=== PATIENT | male | born 1995 | race Caucasian/White ===

== ENCOUNTER 2017-02-19 14:15 | Emergency (ER) | payer OTHER ==
[~2017-02-19] VITALS: Ht 170.2 cm; Wt 78.0 kg
[2017-02-19 14:19] VITALS: Ht 170.2 cm; Wt 78.0 kg
[2017-02-19] MEDS ORDERED: TETRACAINE 0.5% 4 ML OPH BOTH EYES ONE (16:00)
[2017-02-19] MEDS ORDERED: TIMOLOL 0.5% 5 ML OPH LEFT EYE ONE ×2 (16:00→18:00)
[2017-02-19] MEDS ORDERED: IOHEXOL 100 ML ONE (16:07)
[2017-02-19] MEDS ORDERED: SOD CHLORIDE 0.9% 100 ML ONE (16:07)
--- NOTE | 2017-02-19 16:28 | ERA ---
ER Documentation Chief Complaint Date/Time DATE: 02/19/17 TIME: 16:10 Chief Complaint LEFT EYE PAIN AND REDNESS WITH CLEAR DRAINAGE X 1 DAY HPI 21-year-old previously healthy male presenting with left eye pain and redness. He states he woke up this morning and felt some discomfort and pressure in his left eye. He went to look in the mirror and saw that his eye was red. He washed out his eye. As the day progressed he noticed that his pupil was getting larger and his symptoms were getting worse. He denies any associated headache, neck pain, chest pain, earache, focal weakness or numbness, nausea, vomiting. No recent head trauma. Denies drug use. He only complains of mild blurry vision in the left eye but has no flashing or floaters. ROS All systems reviewed and are negative except as per history of present illness. Medications Home Meds No Active Prescriptions or Reported Meds Allergies Allergies: Coded Allergies: amoxicillin (Unverified Allergy, Unknown, 02/19/17) PMhx/Soc Medical and Surgical Hx: pt denies Medical Hx, pt denies Surgical Hx History of Surgery: No Anesthesia Reaction: No Hx Neurological Disorder: No Hx Respiratory Disorders: No Hx Cardiac Disorders: No Hx Psychiatric Problems: No Hx Miscellaneous Medical Probl: No Hx Alcohol Use: No Hx Substance Use: No Hx Tobacco Use: No Smoking Status: Never smoker FmHx Family History: diabetes, other (Grandmother has glaucoma) Physical Exam Vitals Vital Signs Date Time Temp Pulse Resp B/P Pulse Ox O2 Delivery O2 Flow Rate FiO2 02/19/17 20:18 98.0 88 18 123/83 100 Room Air 02/19/17 14:19 97.4 71 18 129/78 96 Physical Exam Const: No apparent distress, nontoxic Head: Atraumatic Eyes: Eye Exam: no proptosis, EOMI, R pupil 3 mm, reactive to light. L pupil dilated and fixed, nonreactive. no afferent pupillary defect Visual Acuity: OD 20/20 OS 20/25 OU 20/20 Visual Emerson: Intact in all four quadrants bilaterally Lac ducts/glands: No swelling Lids w/ eversion: Left upper eyelid with minimal edema, no foreign body Conj/Windham: OS: conjunctival injection, large area of Fluorescein uptake at 9 to 12 o'clock Anterior Chamber: Clear Tonopen readings: OD 24 OS 22 Retina exam: No obvious abnormality ENT: Normal External Ears, Nose and Mouth. Neck: Full range of motion. No meningismus. Resp: Clear to auscultation bilaterally Cardio: Regular rate and rhythm, no murmurs Abd: Soft, non tender, non distended. Normal bowel sounds Skin: No petechiae or rashes Back: No midline or flank tenderness Ext: No cyanosis, or edema Neur: Awake and alert Psych: Normal Mood and Affect Result Diagram: 02/19/17 1632 02/19/17 1632 Results 24 hrs Laboratory Tests Test 02/19/17 16:32 White Blood Count 10.910^3/ul Red Blood Count 5.0210^6/ul Hemoglobin 16.3g/dl Hematocrit 44.7% Mean Corpuscular Volume 89.0fl Mean Corpuscular Hemoglobin 32.5pg Mean Corpuscular Hemoglobin Concent 36.5g/dl Red Cell Distribution Width 11.8% Platelet Count 49168^3/UL Mean Platelet Volume 11.5fl Neutrophils % 81.8% Lymphocytes % 10.2% Monocytes % 6.6% Eosinophils % 0.6% Basophils % 0.3% Nucleated Red Blood Cells % 0.0/100WBC Neutrophils # (Manual) 8.910^3/ul Lymphocytes # 1.110^3/ul Monocytes # 0.710^3/ul Eosinophils # 0.110^3/ul Basophils # 0.010^3/ul Nucleated Red Blood Cells # 0.010^3/ul Sodium Level 142mmol/L Potassium Level 4.1mmol/L Chloride Level 104mmol/L Carbon Dioxide Level 26mmol/L Anion Gap 16 Blood Urea Nitrogen 14mg/dl Creatinine 0.94mg/dl Glucose Level 74mg/dl Calcium Level 9.2mg/dl Current Medications Medications (Trade) Dose Ordered Sig/Gustavo Route PRN Reason Start Time Stop Time Status Last Admin Dose Admin Tetracaine HCl (Tetracaine 0.5% Steri-Unit Komal) 1 drop ONCE ONCE BOTH EYES 02/19/17 16:00 02/19/17 16:01 DC 02/19/17 15:51 Timolol Maleate (Timoptic 0.5%) 1 drop ONCE ONCE LEFT EYE 02/19/17 16:00 02/19/17 16:04 DC 02/19/17 16:19 IV Flush 10 ml 10 ml STK-MED ONCE .ROUTE 02/19/17 16:07 02/19/17 16:08 DC 02/19/17 16:54 Sodium Chloride 100 ml @ ud STK-MED ONCE .ROUTE 02/19/17 16:07 02/19/17 16:08 DC 02/19/17 16:55 Iohexol (Omnipaque) 100 ml @ ud STK-MED ONCE .ROUTE 02/19/17 16:07 02/19/17 16:08 DC 02/19/17 16:55 Morphine Sulfate (morphine) 4 mg ONCE STAT IV 02/19/17 17:45 02/19/17 17:46 DC 02/19/17 17:57 Timolol Maleate (Timoptic 0.5%) 1 drop ONCE ONCE LEFT EYE 02/19/17 18:00 02/19/17 18:02 DC 02/19/17 17:57 Fluorescein Sodium (Dfjxl-N-Aqdzz) 1 strip ONCE ONCE BOTH EYES 02/19/17 18:00 02/19/17 18:02 DC 02/19/17 17:57 Lorazepam (Ativan) 0.5 mg ONCE ONCE IV 02/19/17 20:00 02/19/17 20:01 DC 02/19/17 19:49 Eye Lubricant (Refresh Plus) 1 drop QID LEFT EYE 02/19/17 21:00 Procedures/MDM CBC shows mild leukocytosis without left shift BMP is within normal limits Patient is presenting with a left dilated pupil without any history of trauma. I considered multiple etiologies including acute angle-closure glaucoma, intracranial mass, carotid dissection, aneurysm, and less likely a venous sinus thrombosis. However in conjunction with the corneal fluorescein uptake, this may be more infectious in etiology with possibilities including endophthalmitis , keratitis, iritis. His pressures were not elevated. CTA brain and neck did not show any acute abnormalities. At this time the etiology of his symptoms is unknown. However the patient needs an emergent ophthalmology consult. There is no ophthalmology available at this hospital, so transfer was arranged to [facility] so the patient could see an angular developer tonight. Family is agreeable with the plan. Departure Diagnosis: Primary Impression: Fixed dilated pupil of left eye Condition: Serious ALESSANDRO PAYAN MD Feb 19, 2017 16:28
[2017-02-19] MEDS ORDERED: morphine 4 MG/ML VIAL IV STA (17:45)
--- NOTE | 2017-02-19 17:46 | RADRPT ---
PROCEDURE: CTA Head and Neck. CLINICAL INDICATION: left pupil fixed and dilated, eval for dissection TECHNIQUE: Continues axial 0.63 mm sections were obtained through the head and neck with the use o f 100 cc of Omnipaque 350 nonionic intravenous contrast material. Coronal and sagittal as well as m aximal intensity projection reformations were obtained. 3-D re-formations were performed as well. T he images were reviewed on a PACS workstation. The calculated radiation dose measures 601 mGy centim eters. The CTDI measures 23 mGy. One or more of the following dose reduction techniques were used: Automated exposure control. Adjustment of the mA and/or kV according to patient size. Use of iterative reconstruction technique. COMPARISON: No prior studies are available for comparison. FINDINGS: NECK: The aortic arch is normal appearance. The origins of the great vessels are intact. The right brachi ocephalic artery is within normal limits. The right common carotid artery is unremarkable. The right carotid bifurcation appears normally pat ent. The remainder of the right internal carotid artery is unremarkable, without focal stenosis or dilatation. The left common carotid artery is unremarkable. The left carotid bifurcation appears normally paten t. The remainder of the left internal carotid artery is unremarkable, without focal stenosis or dil atation. The bilateral vertebral arteries are identified, without stenosis or occlusion. HEAD: The petrous right internal carotid artery appears normally patent. The cavernous and supraclinoid r ight internal carotid artery segments appear intact, without focal stenosis or occlusion. The right anterior and middle cerebral arteries are unremarkable. The petrous left internal carotid artery appears normally patent. The cavernous and supraclinoid le ft internal carotid artery segments appear intact, without focal stenosis or occlusion. The left an terior and middle cerebral arteries are unremarkable. The anterior communicating artery is unremarkable. A left posterior communicating artery is unremar kable. A right posterior communicating arteries not well seen, likely small in size or hypoplastic. . There is no evidence of aneurysm or vascular malformation involving the anterior circulation. The intracranial vertebral arteries appear unremarkable. The basilar artery appears within normal l imits. . The superior cerebellar arteries are unremarkable. Bilateral posterior cerebral arteries are normally patent. There is no aneurysm or vascular malformation involving the posterior circulation.. There is mucosal thickening in the paranasal sinuses. IMPRESSION: 1. Unremarkable CT angiogram of the head and neck vasculature. No focal stenosis or dissection iden tified. 2. Chronic sinus disease change. Measurements of the cervical internal carotid artery stenosis were peformed according to NASCET susanna fernandez. RPTAT: HBST .Dejan Cerrato MD, Date Time Electronically viewed and signed by .Dejan Cerrato MD, on 02/19/2017 17:46 .T/
[2017-02-19 17:54] LABS: BASOPHILS % 0.3 % (0.0-2.0); EOSINOPHILS # 0.1 10^3/ul (0.0-0.5); EOSINOPHILS % 0.6 % (0.0-7.0); HEMATOCRIT 44.7 % (42.0-52.0); HEMOGLOBIN 16.3 g/dl (14.0-18.0); LYMPHOCYTES # 1.1 10^3/ul (0.8-2.9); LYMPHOCYTES % 10.2 % (15.0-51.0); MEAN CORPUSCULAR HEMOGLOBIN 32.5 pg (29.0-33.0); MEAN CORPUSCULAR HGB CONC 36.5 g/dl (32.0-37.0); MEAN PLATELET VOLUME 11.5 fl (7.4-10.4); MONOCYTE # 0.7 10^3/ul (0.3-0.9); MONOCYTES % 6.6 % (0.0-11.0); NEUTROPHILS % 81.8 % (39.0-77.0); PLATELET COUNT 259 10^3/UL (140-415); RED BLOOD COUNT 5.02 10^6/ul (4.70-6.10); RED CELL DISTRIBUTION WIDTH 11.8 % (11.5-14.5); WHITE BLOOD COUNT 10.9 10^3/ul (4.8-10.8)
[2017-02-19] MEDS ORDERED: FLUORESCEIN STRIP BOTH EYES ONE (18:00)
[2017-02-19 18:14] LABS: CALCIUM 9.2 mg/dl (8.4-10.2); CREATININE 0.94 mg/dl (0.61-1.24); POTASSIUM 4.1 mmol/L (3.5-5.1)
[2017-02-19] MEDS ORDERED: LORAZEPAM 2 MG INJ IV ONE (20:00)
[2017-02-19 20:18] VITALS: BP 123/83; PULSE 88; RESP 18; TEMP 98
[2017-02-19] MEDS ORDERED: CARBOXYMETHYLCELLULOSE 0.5% 0.1 ML OPH LEFT EYE SCH (21:00)
== END 2017-02-19 21:08 | disposition short-term general hospital (02) ==
LOC: E/R 14:15
DX: H57.04 Mydriasis (principal); H18.892 Other specified disorders of cornea, left eye
CPT/HCPCS: 70496; 70498; 80048; 85025; 96374; 96375; J2060; J2270; Q9967; Z7502; Z7610